=== PATIENT | female | born 1965 | race Caucasian/White ===

== ENCOUNTER 2017-10-15 13:10 | Inpatient (IN) | payer OTHER ==
[~2017-10-15] VITALS: Ht 154.9 cm; Wt 76.5 kg
[2017-10-15] VITALS (8 sets, daily range): BP systolic 106–119; BP diastolic 55–79; PULSE 64–168; RESP 16–26; TEMP 98.5–98.6; O2SAT 94–99
--- NOTE | 2017-10-15 13:28 | PD ---
HPI Chief Complaint: Cardiac Complaint Time Seen by Provider: 13:17 Travel History International Travel<30 days: No Contact w/Intl Traveler<30days: No Traveled to known affect area: No History of Present Illness HPI Patient was seen at a urgent care where the patient sought care for congestion, patient states that a she has been feeling more lethargic and more apparently whether it is short of breath or slightly winded with minimal exercise. Over the past 5 days patient states that she has been having cough and runny nose cough was productive of yellow to green sputum. And also she lost her voice onset yesterday modalities have been going on for the past 5 days. When she showed up to the urgent care they noted that she was tachycardic and did an EKG which showed him some atrial flutter and the patient was sent over here urgently. No PCP since patient is recently relocated from [place] No allergies to medications Denies any past medical history Only states history of foot surgery 6 years ago and 2 C-sections over 20 years ago. PFSH Social History Tobacco Use: No Allergies-Medications (Allergen,Severity, Reaction): Coded Allergies: No Known Allergies (Unverified , 10/15/17) Reported Meds & Prescriptions Reported Meds & Active Scripts Active Reported Vivelle-Dot Patch 84 HR (Estradiol) 0.05 Mg/24 Hr Patch 1 Patch T-DERMAL 2XWEEK Remove old patch and discard when new patch being placed. Change same days each week. Citalopram (Citalopram Hydrobromide) 40 Mg Tab 40 Mg PO DAILY Review of Systems General / Constitutional: No: Fever Eyes: No: Visual changes HENT: Positive: Rhinorrhea Cardiovascular: Positive: Palpitations Respiratory: Positive: Cough Gastrointestinal: No: Abdominal Pain Genitourinary: No: Dysuria Musculoskeletal: No: Pain Skin: No Rash Neurologic: No: Weakness Psychiatric: No: Depression Endocrine: No: Polydipsia Hematologic/Lymphatic: No: Easy Bruising Physical Exam Narrative GENERAL: SKIN: Warm and dry. HEAD: Atraumatic. Normocephalic. EYES: Pupils equal and round. No scleral icterus. No injection or drainage. ENT: No nasal bleeding or discharge. Mucous membranes pink and moist. NECK: Trachea midline. No JVD. CARDIOVASCULAR: Tachycardic rate and regular rhythm RESPIRATORY: No accessory muscle use. Clear to auscultation. Breath sounds equal bilaterally. GASTROINTESTINAL: Abdomen soft, non-tender, nondistended. MUSCULOSKELETAL: Extremities without clubbing, cyanosis, or edema. No obvious deformities. NEUROLOGICAL: Awake and alert. No obvious cranial nerve deficits. Motor grossly within normal limits. Five out of 5 muscle strength in the arms and legs. Normal speech. PSYCHIATRIC: Appropriate mood and affect; insight and judgment normal. Data Data Last Documented VS Vital Signs Date Time Temp Pulse Resp B/P (MAP) Pulse Ox O2 Delivery O2 Flow Rate FiO2 10/15/17 15:00 64 16 112/68 (83) 99 Nasal Cannula 2.00 10/15/17 13:42 98.6 Orders Orders Electrocardiogram (10/15/17 13:17) B-Type Natriuretic Peptide (10/15/17 13:17) Ckmb (Isoenzyme) Profile (10/15/17 13:17) Complete Blood Count With Diff (10/15/17 13:17) Comprehensive Metabolic Panel (10/15/17 13:17) Prothrombin Time / Inr (Pt) (10/15/17 13:17) Act Partial Throm Time (Ptt) (10/15/17 13:17) Troponin I (10/15/17 13:17) Lipase (10/15/17 13:17) Chest, Single Ap (10/15/17 13:17) Ecg Monitoring (10/15/17 13:17) Bilateral Bp Monitoring (10/15/17 13:17) Iv Access Insert/Monitor (10/15/17 13:17) Oximetry (10/15/17 13:17) Diltiazem Inj (Cardizem Inj) (10/15/17 13:30) Enoxaparin Inj (Lovenox Inj) (10/15/17 13:30) Sodium Chlor 0.9% 1000 Ml Inj (Ns 1000 M (10/15/17 14:21) Electrocardiogram (10/15/17 15:10) Thyroid Stimulating Hormone (10/15/17 15:10) Citalopram (Celexa) (10/16/17 09:00) Levothyroxine (Synthroid) (10/16/17 09:00) Pantoprazole (Protonix) (10/16/17 09:00) Comprehensive Metabolic Panel (10/16/17 06:00) Free Thyroxine (T4) (10/16/17 06:00) Hemoglobin (Hgb) A1c (10/16/17 06:00) Magnesium (Mg) (10/16/17 06:00) Phosphorus (Po4) (10/16/17 06:00) Complete Blood Count With Diff (10/16/17 06:00) Admit Order (Ed Use Only) (10/15/17 15:48) Labs Laboratory Tests Test 10/15/17 13:24 10/15/17 13:46 White Blood Count 11.9 TH/MM3 Red Blood Count 4.92 MIL/MM3 Hemoglobin 13.6 GM/DL Hematocrit 41.5 % Mean Corpuscular Volume 84.4 FL Mean Corpuscular Hemoglobin 27.7 PG Mean Corpuscular Hemoglobin Concent 32.8 % Red Cell Distribution Width 12.5 % Platelet Count 387 TH/MM3 Mean Platelet Volume 8.4 FL Neutrophils (%) (Auto) 72.1 % Lymphocytes (%) (Auto) 17.2 % Monocytes (%) (Auto) 4.7 % Eosinophils (%) (Auto) 2.0 % Basophils (%) (Auto) 4.0 % Neutrophils # (Auto) 8.6 TH/MM3 Lymphocytes # (Auto) 2.1 TH/MM3 Monocytes # (Auto) 0.6 TH/MM3 Eosinophils # (Auto) 0.2 TH/MM3 Basophils # (Auto) 0.5 TH/MM3 CBC Comment DIFF FINAL Differential Comment Prothrombin Time 10.0 SEC Prothromb Time International Ratio 1.0 RATIO Activated Partial Thromboplast Time 26.1 SEC Blood Urea Nitrogen 8 MG/DL Creatinine 0.62 MG/DL Random Glucose 122 MG/DL Total Protein 8.0 GM/DL Albumin 3.8 GM/DL Calcium Level 8.8 MG/DL Alkaline Phosphatase 88 U/L Aspartate Amino Transf (AST/SGOT) 12 U/L Alanine Aminotransferase (ALT/SGPT) 20 U/L Total Bilirubin 0.5 MG/DL Sodium Level 139 MEQ/L Potassium Level 3.7 MEQ/L Chloride Level 105 MEQ/L Carbon Dioxide Level 24.0 MEQ/L Anion Gap 10 MEQ/L Estimat Glomerular Filtration Rate 100 ML/MIN Total Creatine Kinase 27 U/L Troponin I LESS THAN 0.02 NG/ML B-Type Natriuretic Peptide 25 PG/ML Lipase 111 U/L Thyroid Stimulating Hormone 3rd Gen LESS THAN 0.005 uIU/ML MDM Medical Decision Making Medical Screen Exam Complete: Yes Emergency Medical Condition: Yes Medical Record Reviewed: Yes Interpretation(s) Pulse ox shows excellent PLETH wave, 98% pulse ox on room air which is interpreted as normal EKG shows atrial flutter type pattern at a rate of approximately [address] elevation noted however there are some ST depressions over V4 through V6. Repeat EKG shows normal sinus rhythm, 64 bpm at 1552. Also shows normal intervals, no STEMI pattern. No current evidence of atrial flutter or atrial fibrillation at this present time. Only minimal evidence of benign early repolarization. Differential Diagnosis New-onset atrial fibrillation versus atrial flutter versus SVT versus hyperthyroidism versus anemia versus pneumonia Narrative Course CBC shows a mild leukocytosis but without any major neutrophilia therefore this is believed to be a reactive leukocytosis. No anemia and normal platelet count without any left shift. Coagulation profile is within normal limits Chemistry profile shows negative troponin, normal beta natruretic peptide, normal lipase, normal liver function tests, normal kidney function tests, and normal electrolytes. TSH level is pending Chest x-ray is read by the radiologist as no acute cardiopulmonary abnormality identified Critical Care Narrative CRITICAL CARE NOTE: With evaluation of the patient, labs, EKG, receipt of radiologic studies, administration of medications, reevaluation the patient and discussion of the patient with the admitting physicians, the total critical care time was [60] minutes. Time to perform other separately billable procedures was not included in the critical care time. Diagnosis Primary Impression: New onset atrial flutter\SVT Additional Impression: URI (upper respiratory infection) Qualified Codes: J06.9 - Acute upper respiratory infection, unspecified Admitting Information Admitting Physician Requests: Observation Scripts Omeprazole (Omeprazole) 40 Mg Cap 40 MG PO DAILY for acid reflux, #30 CAP 0 Refills Prov: Cameron Lester MD 10/16/[address] (Aspirin EC) 81 Mg Tabdr 81 MG PO DAILY for afib, #30 TAB 0 Refills Prov: Cameron Lester MD 10/16/17 Metoprolol Tartrate (Metoprolol Tartrate) 25 Mg Tab 12.5 MG PO DIRECTED for afib, #30 TAB 0 Refills half tab by mouth twice daily Prov: Cameron Lester MD 10/16/17 Levothyroxine (Levothyroxine) 75 Mcg Tab 75 MCG PO DAILY for Thyroid, #30 TAB 0 Refills Prov: Cameron Lester MD 10/16/17 Ron Neri MD Oct 15, 2017 13:28
[2017-10-15] MEDS ORDERED: ENOXAPARIN SODIUM 80 MG/0.8 ML SYRINGE SQ ONE (13:30)
[2017-10-15] MEDS ORDERED: DILTIAZEM HCL 25 MG/5 ML VIAL IV PUSH ONE ×2 (13:30→16:00)
[2017-10-15 13:35] LABS: AUTOMATED NEUTROPHIL # 8.6 TH/MM3 (1.8-7.7); BASOPHIL # 0.5 TH/MM3 (0-0.2); EOSINOPHIL # 0.2 TH/MM3 (0-0.4); HEMATOCRIT 41.5 % (35.0-46.0); HEMOGLOBIN 13.6 GM/DL (11.6-15.3); LYMPH % 17.2 % (9.0-44.0); LYMPHOCYTE # 2.1 TH/MM3 (1.0-4.8); MEAN CELL VOLUME 84.4 FL (80.0-100.0); MEAN CORPUSCULAR HEMOGLOBIN 27.7 PG (27.0-34.0); MEAN CORPUSCULAR HGB CONC 32.8 % (32.0-36.0); MEAN PLATELET VOLUME 8.4 FL (7.0-11.0); MONO % 4.7 % (0.0-8.0); MONOCYTE # 0.6 TH/MM3 (0-0.9); NEUT % 72.1 % (16.0-70.0); PLATELET COUNT 387 TH/MM3 (150-450); RED BLOOD COUNT 4.92 MIL/MM3 (4.00-5.30); RED CELL DISTRIBUTION WIDTH 12.5 % (11.6-17.2); WHITE BLOOD COUNT 11.9 TH/MM3 (4.0-11.0)
[2017-10-15 13:49] LABS: CHLORIDE 105 MEQ/L (98-107); SODIUM (NA) 139 MEQ/L (136-145)
[2017-10-15 13:54] LABS: CALCIUM 8.8 MG/DL (8.5-10.1)
[2017-10-15 13:55] LABS: ALBUMIN 3.8 GM/DL (3.4-5.0); BLOOD UREA NITROGEN 8 MG/DL (7-18); GLUCOSE,RANDOM 122 MG/DL (74-106)
[2017-10-15 13:57] LABS: ALT (GPT) 20 U/L (10-53)
[2017-10-15 13:58] LABS: AST (GOT) 12 U/L (15-37); CREATININE 0.62 MG/DL (0.50-1.00); GLOMERULAR FILTRATION RATE 100 ML/MIN (>89)
[2017-10-15 13:59] LABS: TOTAL BILIRUBIN ADULT 0.5 MG/DL (0.2-1.0)
[2017-10-15 14:00] LABS: ALKALINE PHOSPHATASE 88 U/L (45-117)
[2017-10-15] MEDS ORDERED: LEVO150T7 PO (14:01)
[2017-10-15] MEDS ORDERED: OMEP20TA93 PO (14:01)
[2017-10-15] MEDS ORDERED: CITA40TA4 PO (14:01)
[2017-10-15] MEDS ORDERED: VIVE0.05 T-DERMAL (14:01)
[2017-10-15 14:02] LABS: TROPONIN I LESS THAN 0.02 NG/ML (0.02-0.05)
--- NOTE | 2017-10-15 14:03 | RADRPT ---
EXAM DATE/TIME: 10/15/2017 13:33 [facility] COMPARISON: No previous studies available for comparison. INDICATIONS : Cough and palpatations MEDICAL HISTORY : None. SURGICAL HISTORY : None. ENCOUNTER: Initial ACUITY: 4 - 6 days PAIN SCORE: 3/10 LOCATION: Bilateral chest FINDINGS: Portable AP view of the chest demonstrates a normal-sized cardiac silhouette. No effusion, consolidat ion, or pneumothorax is visualized. The bones and soft tissues demonstrate no acute abnormality. CONCLUSION: No acute cardiopulmonary abnormality is identified. Sanket Kam MD on October 15, 2017 at 14:01 Board Certified Radiologist. This report was verified electronically.
[2017-10-15] MEDS ORDERED: SODIUM CHLOR 0.9% 1000 ML INJ 1,000 ML IV SCH (14:21)
[2017-10-15] MEDS ORDERED: DILTIAZEM INJ 125 MG in SODIUM CHLORIDE 0.9% INJ 100 ML IV PRN (16:00)
[2017-10-15] MEDS ORDERED: RESP: ALBUTEROL 2.5 MG/IPRATROPIUM 0.5 MG NEB (PRN) NEB (16:00)
[2017-10-15] MEDS ORDERED: ONDANSETRON HCL 4 MG/2 ML VIAL IVP PRN (16:00)
[2017-10-15] MEDS ORDERED: ACETAMINOPHEN/HYDROcodone 325 MG/10 MG TAB PO PRN (16:00)
[2017-10-15] MEDS ORDERED: oxyCODONE/ACETAMINOPHEN 5 MG/325 MG TAB PO PRN (16:00)
[2017-10-15] MEDS ORDERED: METOCLOPRAMIDE HCL 10 MG/2 ML VIAL IV PUSH PRN (16:00)
[2017-10-15] MEDS ORDERED: ACETAMINOPHEN 325 MG TAB PO PRN (16:00)
[2017-10-15] MEDS ORDERED: SODIUM CHLORIDE 0.9% FLUSH 10 ML FLUSH IV FLUSH PRN ×2 (16:00)
[2017-10-15] MEDS ORDERED: MORPHINE SULFATE 2 MG/ML INJ IV PUSH PRN ×2 (16:00)
[2017-10-15] MEDS ORDERED: BISACODYL 10 MG SUPP RECTAL PRN (16:00)
[2017-10-15] MEDS ORDERED: SENNOSIDES 8.6 MG TAB PO PRN (16:00)
[2017-10-15] MEDS ORDERED: LACTULOSE SYRUP 20 GM/30 ML CUP PO PRN (16:00)
[2017-10-15] MEDS ORDERED: MAGNESIUM HYDROXIDE SUSP 30 ML CUP PO PRN (16:00)
[2017-10-15] MEDS ORDERED: NALOXONE HCL 0.4 MG/ML AMP IV PUSH PRN (16:00)
[2017-10-15 16:50] LABS: TROPONIN I LESS THAN 0.02 NG/ML (0.02-0.05)
[2017-10-15] MEDS ORDERED: AZITHROMYCIN INJ 500 MG in SODIUM CHLOR 0.9% 250 ML INJ 250 ML IV SCH (17:00)
[2017-10-15] MEDS ORDERED: diphenhydrAMINE HCL 50 MG/ML VIAL IV PUSH PRN (18:15)
--- NOTE | 2017-10-15 18:19 | HHI.HP ---
[facility] No Primary Care Physician Admission Diagnosis AFLUTTER WITH CONTROLLED VENTR RATE, THYROID DISORDER Diagnoses: (1) Atrial fibrillation Diagnosis: Principal (2) Atrial flutter Diagnosis: Principal (3) Hypothyroid Diagnosis: Secondary (4) Hyperthyroidism Diagnosis: Principal (5) GERD (gastroesophageal reflux disease) Diagnosis: Secondary (6) Depression Diagnosis: Secondary (7) URI (upper respiratory infection) Diagnosis: Secondary Travel History International Travel<30 Days: No Contact w/Intl Traveler <30 Da: No Traveled to Known Affected Are: No History of Present Illness Patient is a 52-year-old female, Who was seen at a urgent care where the patient seeking care for congestion, patient states that a she has been feeling more lethargic and more apathetic whether it is short of breath or slightly winded with minimal exercise. Patient states she has had issues with this in the past before Over the past 5 days patient states that she has been having cough and runny nose cough was productive of yellow to green sputum. And also she lost her voice onset yesterday these issues have been going on have been going on for the past 5 days. When the patient presented to the urgent care they noted that she was tachycardic and did an EKG which showed that she had some atrial flutter and the patient was sent over here urgently for evaluation of her atrial fibrillation/atrial flutter. Patient does not have a current PCP yet since patient is recently relocated from [place] No allergies to medications Denies any past medical history other than depression, hypothyroidism, and GERD and some possible issues with palpitations in the past Only states history of foot surgery 6 years ago and 2 C-sections over 20 years ago. Review of Systems Constitutional: COMPLAINS OF: Fever, Chills, DENIES: Diaphoretic episodes, Fatigue, Weight gain, Weight loss, Dizziness, Change in appetite, Night Sweats Endocrine: DENIES: Abnorml menstrual pattern, Heat/cold intolerance, Polydipsia , Polyuria, Polyphagia Eyes: DENIES: Blurred vision, Diplopia, Eye inflammation, Eye pain, Vision loss , Photosensitivity, Double Vision Ears, nose, mouth, throat: COMPLAINS OF: Nasal discharge, Hoarseness, DENIES: Tinnitus, Hearing loss, Vertigo, Oral lesions, Throat pain, Ear Pain, Running Nose, Epistaxis, Sinus Pain, Toothache, Odynophagia Respiratory: COMPLAINS OF: Cough, Sputum production, Shortness of breath, DENIES: Apneas, Snoring, Wheezing, Hemoptysis Cardiovascular: DENIES: Chest pain, Palpitations, Syncope, Dyspnea on Exertion , PND, Lower Extremity Edema, Orthopnea, Claudication Gastrointestinal: DENIES: Abdominal pain, Black stools, Bloody stools, Constipation, Diarrhea, Nausea, Vomiting, Difficulty Swallowing Genitourinary: DENIES: Abnormal vaginal bleeding, Dysmenorrhea, Dyspareunia, Sexual dysfunction, Urinary frequency Musculoskeletal: DENIES: Joint pain, Muscle aches, Stiffness, Joint Swelling, Back pain Integumentary: DENIES: Abnormal pigmentation, Pruritus, Rash, Breast masses, Breast skin changes Hematologic/lymphatic: DENIES: Bruising, Lymphadenopathy Immunologic/allergic: DENIES: Eczema, Urticaria Neurologic: DENIES: Abnormal gait, Headache, Localized weakness, Paresthesias, Seizures, Speech Problems, Tremor, Poor Balance Psychiatric: COMPLAINS OF: Depression, DENIES: Anxiety, Confusion, Mood changes , Hallucinations, Agitation, Suicidal Ideation, Homicidal Ideation Past Family Social History Past Medical History Depression Hypothyroidism GERD Past Surgical History section Foot surgery Reported Medications Reported Meds & Active Scripts Active Reported Vivelle-Dot Patch 84 HR (Estradiol) 0.05 Mg/24 Hr Patch 1 Patch T-DERMAL 2XWEEK Remove old patch and discard when new patch being placed. Change same days each week. Citalopram (Citalopram Hydrobromide) 40 Mg Tab 40 Mg PO DAILY Levothyroxine (Levothyroxine Sodium) 150 Mcg Tab 150 Mcg PO DAILY Omeprazole 20 Mg Tab 20 Mg PO DAILY Allergies: Coded Allergies: No Known Allergies (Unverified , 10/15/17) Active Ordered Medications Current Medications Diltiazem HCl (Cardizem Inj) 20 mg BOLUS ONCE IV PUSH Last administered on at 13:36; Start 10/15/17 at 13:30; Stop 10/15/17 at 13:31; Status DC Enoxaparin Sodium (Lovenox Inj) 70 mg ONCE ONCE SQ Last administered on at 13:37; Start 10/15/17 at 13:30; Stop 10/15/17 at 13:31; Status DC Sodium Chloride 1,000 ml @ 1,000 mls/hr Q1H IV Last administered on 10/15/17at 14:25; Start 10/15/17 at 14:21; Stop 10/15/17 at 15:20; Status DC Citalopram Hydrobromide (CeleXA) 40 mg DAILY PO ; Start 10/16/17 at 09:00 Levothyroxine Sodium (Synthroid) 150 mcg DAILY PO ; Start 10/16/17 at 09:00; Stop 10/16/17 at 09:00; Status DC Pantoprazole Sodium (Protonix) 20 mg DAILY PO ; Start 10/16/17 at 09:00 Diltiazem HCl (Cardizem Inj) 20 mg ONCE ONCE IV PUSH ; Start 10/15/17 at 16:00 ; Stop 10/15/17 at 16:01; Status DC Diltiazem HCl 125 mg/Sodium Chloride 125 ml @ 5 mls/hr TITRATE PRN IV Tachycardia; Start 10/15/17 at 16:00 Sodium Chloride (NS Flush) 2 ml UNSCH PRN IV FLUSH FLUSH AFTER USING IV ACCESS ; Start 10/15/17 at 16:00 Sodium Chloride (NS Flush) 2 ml BID IV FLUSH ; Start 10/15/17 at 21:00 Metoprolol Tartrate (Lopressor) 25 mg BID PO ; Start 10/15/17 at 21:00 Enoxaparin Sodium (Lovenox Inj) 70 mg Q12HR SQ ; Start 10/15/17 at 21:00 Azithromycin 500 mg/Sodium Chloride 250 ml @ 250 mls/hr Q24H IV Last administered on 10/15/17at 17:01; Start 10/15/17 at 17:00 Guaifenesin (Mucinex Er) 600 mg BID PO ; Start 10/15/17 at 21:00 Albuterol/ Ipratropium (Duoneb Neb) 1 ampule Q4HR NEB PRN NEB SHORTNESS OF BREATH; Start 10/15/17 at 16:00 Sodium Chloride (NS Flush) 2 ml UNSCH PRN IV FLUSH FLUSH AFTER USING IV ACCESS ; Start 10/15/17 at 16:00; Status UNV Sodium Chloride (NS Flush) 2 ml BID IV FLUSH ; Start 10/15/17 at 21:00; Status UNV Acetaminophen (Tylenol) 650 mg Q4H PRN PO TEMP > 100.4; Start 10/15/17 at 16:00 Ondansetron HCl (Zofran Inj) 4 mg Q6H PRN IVP NAUSEA OR VOMITING; Start at 16:00 Metoclopramide HCl (Reglan Inj) 5 mg Q6H PRN IV PUSH NAUSEA OR VOMITING; Start 10/15/17 at 16:00 Acetaminophen (Tylenol) 650 mg Q6H PRN PO PAIN SCALE 1 TO 2; Start 10/15/17 at 16:00 Acetaminophen/ Hydrocodone Bitart ([place] 10-325 Mg) 1 tab Q4H PRN PO PAIN SCALE 6 TO 10; Start 10/15/17 at 16:00 Oxycodone/ Acetaminophen (Percocet 5-325 Mg) 1 tab Q6H PRN PO PAIN SCALE 3 TO 5; Start 10/15/17 at 16:00 Morphine Sulfate (Morphine Inj) 2 mg Q3H PRN IV PUSH Pain 3-5; if unable to take PO; Start 10/15/17 at 16:00 Morphine Sulfate (Morphine Inj) 4 mg Q3H PRN IV PUSH Pain 6-10;if unable to take PO; Start 10/15/17 at 16:00 Naloxone HCl (Narcan Inj) 0.4 mg UNSCH PRN IV PUSH SEE LABEL COMMENTS; Start at 16:00 Senna/Docusate Sodium (Abbie-Colace) 1 tab BID PO ; Start 10/15/17 at 21:00 Magnesium Hydroxide (Milk Of Magnesia Liq) 30 ml Q12H PRN PO Mild constipation ; Start 10/15/17 at 16:00 Sennosides (Senokot) 17.2 mg Q12H PRN PO Moderate constipation; Start 10/15/17 at 16:00 Bisacodyl (Dulcolax Supp) 10 mg DAILY PRN RECTAL SEVERE CONSITIPATION; Start at 16:00 Lactulose (Lactulose Liq) 30 ml DAILY PRN PO SEVERE CONSITIPATION; Start at 16:00 Family History Mother at age 43 with pancreatic cancer Father age 85 had hypertension coronary artery disease and diabetes Social History Denies any tobacco alcohol or illicits Physical Exam Vital Signs Vital Signs Date Time Temp Pulse Resp B/P (MAP) Pulse Ox O2 Delivery O2 Flow Rate FiO2 10/15/17 17:32 72 16 106/68 (81) 97 Room Air 114/78 (90) 10/15/17 15:00 64 16 112/68 (83) 99 Nasal Cannula 2.00 10/15/17 13:42 98.6 168 16 116/79 (91) 96 10/15/17 13:40 96 Room Air 10/15/17 13:39 16 96 Room Air Physical Exam GENERAL: This is a well-nourished, well-developed patient, in no apparent distress. SKIN: No rashes, ecchymoses or lesions. Cool and dry. HEAD: Atraumatic. Normocephalic. No temporal or scalp tenderness. EYES: Pupils equal round and reactive. Extraocular motions intact. No scleral icterus. No injection or drainage. ENT: Nose without bleeding, purulent drainage or septal hematoma. Throat without erythema, tonsillar hypertrophy or exudate. Uvula midline. Airway patent. NECK: Trachea midline. No JVD or lymphadenopathy. Supple, nontender, no meningeal signs. CARDIOVASCULAR: IRRegular rate and rhythm without murmurs, gallops, or rubs. S1 and S2 no S3 or S4 RESPIRATORY: Clear to auscultation. Breath sounds equal bilaterally. No wheezes , rales, or rhonchi. GASTROINTESTINAL: Abdomen soft, non-tender, nondistended. No hepato-splenomegaly , or palpable masses. No guarding. MUSCULOSKELETAL: Extremities without clubbing, cyanosis, or edema. No joint tenderness, effusion, or edema noted. No calf tenderness. Negative Homans sign bilaterally. NEUROLOGICAL: Awake and alert. Cranial nerves II through XII intact. Motor and sensory grossly within normal limits. Five out of 5 muscle strength in all muscle groups. Normal speech. Insight and judgment is good mood and behaviors appropriate Laboratory Laboratory Tests Test 10/15/17 13:24 10/15/17 13:46 10/15/17 16:15 White Blood Count 11.9 Red Blood Count 4.92 Hemoglobin 13.6 Hematocrit 41.5 Mean Corpuscular Volume 84.4 Mean Corpuscular Hemoglobin 27.7 Mean Corpuscular Hemoglobin Concent 32.8 Red Cell Distribution Width 12.5 Platelet Count 387 Mean Platelet Volume 8.4 Neutrophils (%) (Auto) 72.1 Lymphocytes (%) (Auto) 17.2 Monocytes (%) (Auto) 4.7 Eosinophils (%) (Auto) 2.0 Basophils (%) (Auto) 4.0 Neutrophils # (Auto) 8.6 Lymphocytes # (Auto) 2.1 Monocytes # (Auto) 0.6 Eosinophils # (Auto) 0.2 Basophils # (Auto) 0.5 CBC Comment DIFF FINAL Differential Comment Prothrombin Time 10.0 Prothromb Time International Ratio 1.0 Activated Partial Thromboplast Time 26.1 Blood Urea Nitrogen 8 Creatinine 0.62 Random Glucose 122 Total Protein 8.0 Albumin 3.8 Calcium Level 8.8 Alkaline Phosphatase 88 Aspartate Amino Transf (AST/SGOT) 12 Alanine Aminotransferase (ALT/SGPT) 20 Total Bilirubin 0.5 Sodium Level 139 Potassium Level 3.7 Chloride Level 105 Carbon Dioxide Level 24.0 Anion Gap 10 Estimat Glomerular Filtration Rate 100 Total Creatine Kinase 27 21 Troponin I LESS THAN 0.02 LESS THAN 0.02 B-Type Natriuretic Peptide 25 Lipase 111 Thyroid Stimulating Hormone 3rd Gen LESS THAN 0.005 Magnesium Level 2.0 Result Diagram: 10/15/17 1324 10/15/17 1324 Caprini VTE Risk Assessment Caprini VTE Risk Assessment: Mod/High Risk (score >= 2) Caprini Risk Assessment Model Point Value = 1 Point Value = 2 Point Value = 3 Point Value = 5 Age 41-60 Minor surgery BMI > 25 kg/m2 Swollen legs Varicose veins or History of unexplained or recurrent spontaneous Oral contraceptives or hormone replacement Sepsis (< 1 month) Serious lung disease, including pneumonia (< 1 month) Abnormal pulmonary function Acute myocardial infarction Congestive heart failure (< 1 month) History of inflammatory bowel disease Medical patient at bed rest Age 61-74 Arthroscopic surgery Major open surgery (> 45 min) Laparoscopic surgery (> 45 min) Malignancy Confined to bed (> 72 hours) Immobilizing plaster cast Central venous access Age >= 75 History of VTE Family history of VTE Factor V Leiden Prothrombin [id number] Lupus anticoagulant Anticardiolipin antibodies Elevated serum homocysteine Heparin-induced thrombocytopenia Other congenital or acquired thrombophilia Stroke (< 1 month) Elective arthroplasty Hip, pelvis, or leg fracture Acute spinal cord injury (< 1 month) Prophylaxis Regimen Total Risk Factor Score Risk Level Prophylaxis Regimen 0-1 Low Early ambulation 2 Moderate Order ONE of the following: *Sequential Compression Device (SCD) *Heparin 5000 units SQ BID 3-4 Higher Order ONE of the following medications: *Heparin 5000 units SQ TID *Enoxaparin/Lovenox 40 mg SQ daily (WT < 150 kg, CrCl > 30 mL/min) *Enoxaparin/Lovenox 30 mg SQ daily (WT < 150 kg, CrCl > 10-29 mL/min) *Enoxaparin/Lovenox 30 mg SQ BID (WT < 150 kg, CrCl > 30 mL/min) AND/OR *Sequential Compression Device (SCD) 5 or more Highest Order ONE of the following medications: *Heparin 5000 units SQ TID (Preferred with Epidurals) *Enoxaparin/Lovenox 40 mg SQ daily (WT < 150 kg, CrCl > 30 mL/min) *Enoxaparin/Lovenox 30 mg SQ daily (WT < 150 kg, CrCl > 10-29 mL/min) *Enoxaparin/Lovenox 30 mg SQ BID (WT < 150 kg, CrCl > 30 mL/min) AND *Sequential Compression Device (SCD) Assessment and Plan Problem List: (1) Atrial fibrillation ICD Code: I48.91 - Unspecified atrial fibrillation (2) Atrial flutter ICD Code: I48.92 - Unspecified atrial flutter (3) Hyperthyroidism ICD Code: E05.90 - Thyrotoxicosis, unspecified without thyrotoxic crisis or storm (4) Depression ICD Code: F32.9 - Major depressive disorder, single episode, unspecified (5) Hypothyroid ICD Code: E03.9 - Hypothyroidism, unspecified (6) URI (upper respiratory infection) ICD Code: J06.9 - Acute upper respiratory infection, unspecified (7) GERD (gastroesophageal reflux disease) ICD Code: K21.9 - Gastro-esophageal reflux disease without esophagitis Assessment and Plan Atrial fibrillation/atrial flutter suspect secondary to possibly hyperthyroidism versus Sudafed medications for her upper respiratory infection Consult cardiology Trend troponins Echocardiogram Lovenox Cardizem drip as needed has received Cardizem pushes Metoprolol Upper respiratory infection continue on Zithromax and Mucinex and incentive spirometry and then treatment Depression continue on home medications GERD continue on PPI Hyperthyroid now we'll hold off on any thyroid replacement and get free T4 History of section foot surgery Code Status FULL CODE Discussed Condition With ER PHYSICIAN AND PATIENT AND RN AND CARDIOLOGY Physician Certification 2 Midnight Certification Type: Admission for Inpatient Services Order for Inpatient Services The services are ordered in accordance with Medicare regulations or non- Medicare payer requirements, as applicable. In the case of services not specified as inpatient-only, they are appropriately provided as inpatient services in accordance with the 2-midnight benchmark. Estimated LOS (days): 2 days is the estimated time the patient will need to remain in the hospital, assuming treatment plan goals are met and no additional complications. Post-Hospital Plan: Home Eduardo Soto DO Oct 15, 2017 18:19
--- NOTE | 2017-10-15 20:10 | RADRPT ---
EXAM DATE/TIME: 10/15/2017 18:38 [facility] COMPARISON: No previous studies available for comparison. INDICATIONS : Cough. MEDICAL HISTORY : None. SURGICAL HISTORY : None. ENCOUNTER: Subsequent ACUITY: 4 - 6 days PAIN SCORE: 0/10 LOCATION: Bilateral chest FINDINGS: PA and lateral views of the chest demonstrate the lungs to be symmetrically aerated without evidence of mass, infiltrate or effusion. The cardiomediastinal contours are unremarkable. Osseous structure s are intact. CONCLUSION: No acute disease. Nicolas Mg MD on October 15, 2017 at 20:08 Board Certified Radiologist. This report was verified electronically.
[2017-10-15] MEDS: SODIUM CHLORIDE 0.9% FLUSH 10 ML FLUSH IV FLUSH SCH (20:46)
[2017-10-15] MEDS: DOCUSATE SODIUM 50 MG/SENNA 8.6 MG TAB PO SCH (20:46)
[2017-10-15] MEDS: ENOXAPARIN SODIUM 80 MG/0.8 ML SYRINGE SQ SCH (20:46)
[2017-10-15] MEDS: guaiFENesin E.R. 600 MG TAB PO SCH (20:46)
[2017-10-15] MEDS: METOPROLOL TARTRATE 25 MG TAB PO SCH (20:46)
[2017-10-15] MEDS: ACETAMINOPHEN 325 MG TAB PO PRN (20:50)
[2017-10-15] MEDS ORDERED: SODIUM CHLORIDE 0.9% FLUSH 10 ML FLUSH IV FLUSH SCH (21:00)
[2017-10-15 22:46] LABS: TROPONIN I LESS THAN 0.02 NG/ML (0.02-0.05)
[2017-10-16] VITALS (8 sets, daily range): BP systolic 87–111; BP diastolic 47–57; PULSE 52–62; RESP 14–28; TEMP 97.8–98.5; O2SAT 94–98
[2017-10-16 05:06] LABS: AUTOMATED NEUTROPHIL # 4.5 TH/MM3 (1.8-7.7); BASOPHIL # 0.1 TH/MM3 (0-0.2); BASOPHIL % 1.4 % (0.0-2.0); EOSINOPHIL # 0.3 TH/MM3 (0-0.4); EOSINOPHIL % 3.5 % (0.0-4.0); HEMATOCRIT 36.7 % (35.0-46.0); HEMOGLOBIN 12.3 GM/DL (11.6-15.3); LYMPH % 30.9 % (9.0-44.0); LYMPHOCYTE # 2.4 TH/MM3 (1.0-4.8); MEAN CELL VOLUME 85.8 FL (80.0-100.0); MEAN CORPUSCULAR HEMOGLOBIN 28.8 PG (27.0-34.0); MEAN CORPUSCULAR HGB CONC 33.6 % (32.0-36.0); MEAN PLATELET VOLUME 8.6 FL (7.0-11.0); MONO % 5.6 % (0.0-8.0); MONOCYTE # 0.4 TH/MM3 (0-0.9); NEUT % 58.6 % (16.0-70.0); PLATELET COUNT 347 TH/MM3 (150-450); RED BLOOD COUNT 4.27 MIL/MM3 (4.00-5.30); RED CELL DISTRIBUTION WIDTH 12.5 % (11.6-17.2); WHITE BLOOD COUNT 7.7 TH/MM3 (4.0-11.0)
[2017-10-16 05:07] LABS: CHLORIDE 107 MEQ/L (98-107); SODIUM (NA) 140 MEQ/L (136-145)
[2017-10-16 05:10] LABS: ALBUMIN 3.2 GM/DL (3.4-5.0); CALCIUM 8.2 MG/DL (8.5-10.1)
[2017-10-16 05:11] LABS: BICARBONATE 26.5 MEQ/L (21.0-32.0); BLOOD UREA NITROGEN 9 MG/DL (7-18); GLUCOSE,RANDOM 138 MG/DL (74-106); MAGNESIUM 2.2 MG/DL (1.5-2.5)
[2017-10-16 05:13] LABS: ALT (GPT) 15 U/L (10-53); AST (GOT) 8 U/L (15-37); CREATININE 0.54 MG/DL (0.50-1.00); GLOMERULAR FILTRATION RATE 118 ML/MIN (>89)
[2017-10-16 05:14] LABS: PHOSPHORUS 3.4 MG/DL (2.5-4.9)
[2017-10-16 05:15] LABS: TOTAL BILIRUBIN ADULT 0.4 MG/DL (0.2-1.0); TOTAL PROTEIN 6.8 GM/DL (6.4-8.2)
[2017-10-16 05:16] LABS: ALKALINE PHOSPHATASE 71 U/L (45-117)
[2017-10-16] MEDS: ENOXAPARIN SODIUM 80 MG/0.8 ML SYRINGE SQ SCH (08:30)
[2017-10-16] MEDS: guaiFENesin E.R. 600 MG TAB PO SCH (08:30)
[2017-10-16] MEDS: SODIUM CHLORIDE 0.9% FLUSH 10 ML FLUSH IV FLUSH SCH (08:30)
[2017-10-16] MEDS: METOPROLOL TARTRATE 25 MG TAB PO SCH (08:31)
[2017-10-16] MEDS: DOCUSATE SODIUM 50 MG/SENNA 8.6 MG TAB PO SCH (08:31)
[2017-10-16] MEDS: ACETAMINOPHEN 325 MG TAB PO PRN (08:34)
[2017-10-16] MEDS ORDERED: PANTOPRAZOLE SOD 20 MG DELAYED RELEASE TAB PO SCH (09:00)
[2017-10-16] MEDS ORDERED: LEVOTHYROXINE SODIUM 150 MCG TAB PO SCH (09:00)
[2017-10-16] MEDS ORDERED: CITALOPRAM HYDROBROMIDE 40 MG TAB PO SCH (09:00)
[2017-10-16] MEDS ORDERED: INFLUENZA VIRUS VACCINE (QUADRIVALENT) 0.5 ML SYR IM ONE (10:00)
[2017-10-16] MEDS ORDERED: PNEUMOCOCCAL POLYVALENT INJ 25 MCG/0.5 ML SYR IM ONE (10:00)
[2017-10-16 10:02] LABS: FREE T4 1.28 NG/DL (0.76-1.46)
--- NOTE | 2017-10-16 10:33 | MB ---
cc: Krystal Mendoza MD DATE OF CONSULT: REASON FOR CONSULTATION: New onset atrial fibrillation. HISTORY OF PRESENT ILLNESS: The patient is a 52-year-old female who presented to an urgent care clinic with cold and flu symptoms, with yellow sputum. She was found to have atrial fibrillation with rapid ventricular rate and referred to the emergency room. The patient reports that she has had intermittent palpitations in the past, but was never diagnosed with the atrial fibrillation. She is currently asymptomatic with regard to that, but did have some throat discomfort. She does continue to report congestion from her cold, but denies any cardiac symptoms at this time. ALLERGIES: NO KNOWN DRUG ALLERGIES. OUTPATIENT MEDICATIONS: Include citalopram, levothyroxine, omeprazole, Vivelle-Dot Patch. PAST MEDICAL HISTORY: Significant for hypothyroidism, GERD. REVIEW OF SYSTEMS: Except as mentioned in the HPI, all 12 systems are negative. SOCIAL HISTORY: The patient is . FAMILY HISTORY: Noncontributory. PHYSICAL EXAMINATION: VITAL SIGNS: Heart rate 64, respiratory rate 16, blood pressure 112/68. GENERAL: She is an overweight female who is in no apparent distress. NECK: Her neck is free from JVD. PULMONARY: Her lungs are bilaterally clear to auscultation. CARDIOVASCULAR: She has a normal S1 and S2. I did not appreciate any murmurs, rubs or gallops. ABDOMEN: Soft. EXTREMITIES: Free from edema. LABORATORY VALUES: Show a TSH of less than 0.005. Her total creatinine is 21 and the troponin is less than 0.02. ECHOCARDIOGRAM: On arrival, does show atrial fibrillation with rapid ventricular rate. TELEMETRY: Currently shows normal sinus rhythm of 65. IMPRESSION: NEW ONSET ATRIAL FIBRILLATION: Her CHADS-VASc score is 1 for a female. This is essentially lone atrial fibrillation and likely related to her thyroid. I would use aspirin for anticoagulation and would add low dose metoprolol if she is able to tolerate it, at least until her thyroid normalizes, as her resting heart rate is in the 60s. THYROID: This will be per the primary team. COLD: This is being treated by the primary team with antibiotics. DISPOSITION: It is reasonable for the patient to be discharged in the a.m., with outpatient followup provided she remains in sinus rhythm. MD DARCY Rock/MELE , 05:08 PM , 11:39 PM
[2017-10-16] MEDS ORDERED: LEVO75TA3 PO (11:55)
[2017-10-16] MEDS ORDERED: METO25TA3 PO (12:01)
[2017-10-16] MEDS ORDERED: ASPI81TA23 PO (12:01)
--- NOTE | 2017-10-16 12:02 | HHI.DCPOC ---
Discharge Care Plan Diagnosis: (1) Atrial flutter (2) Atrial fibrillation (3) Hypothyroid (4) URI (upper respiratory infection) Additional Problems Have your PCP titrate your synthroid dose in the clinic. Goals to Promote Your Health * To prevent worsening of your condition and complications * To maintain your health at the optimal level Directions to Meet Your Goals Take your medications as prescribed Follow your dietary instruction Follow activity as directed Keep your appointments as scheduled Take your immunizations and boosters as scheduled If your symptoms worsen call your PCP, if no PCP go to Urgent Care Center or Emergency Room Smoking is Dangerous to Your Health. Avoid second hand smoke Call the 24-hour hour crisis hotline for domestic abuse at Cameron Lester MD Oct 16, 2017 12:02
[2017-10-16] MEDS ORDERED: OMEP40CA2 PO (12:25)
--- NOTE | 2017-10-16 12:28 | HHI.PR ---
Subjective Remarks Nursing denies any deterioration since last night. Patient is also she feels better. Tolerating p.o. intake. Heart rate is in the 60s. It had some transient hypotension last night was likely due to metoprolol from yesterday. Objective Vital Signs Date Time Temp Pulse Resp B/P (MAP) Pulse Ox O2 Delivery O2 Flow Rate FiO2 10/16/17 12:00 58 10/16/17 12:00 58 28 91/52 (65) 10/16/17 08:00 52 10/16/17 08:00 97.8 62 14 111/57 (75) 94 10/16/17 07:46 98 21 10/16/17 04:01 98.5 56 17 87/48 (61) 96 10/16/17 04:00 60 10/16/17 00:00 56 10/16/17 00:00 98.1 56 17 99/47 (64) 95 10/15/17 20:42 98.6 66 26 106/55 (72) 10/15/17 20:00 68 10/15/17 19:40 98 21 10/15/17 17:32 72 16 106/68 (81) 97 Room Air 114/78 (90) 10/15/17 16:00 98.5 72 20 119/72 (88) 94 10/15/17 15:00 64 16 112/68 (83) 99 Nasal Cannula 2.00 10/15/17 13:42 98.6 168 16 116/79 (91) 96 10/15/17 13:40 96 Room Air 10/15/17 13:39 16 96 Room Air I/O 10/15/17 10/15/17 10/15/17 10/16/17 10/16/17 10/16/17 06:59 14:59 22:59 06:59 14:59 22:59 Intake Total 1250 ml Balance 1250 ml Intake IV Total 1250 ml # Voids 1 Result Diagram: 10/16/17 0435 10/16/17434 Objective Remarks Heart sounds are regular rate rhythm, no murmurs Lying up in bed, no acute distress, awake, alert, lungs are clear bilaterally, has a good audible voice today A/P Assessment and Plan A. fib with RVR now under stable control with metoprolol. We will discharge the patient with a lower dose of 12.5 mg twice a day to better balance her blood pressure. She was counseled to start a low-dose baby aspirin for her stroke risk and that we will also lower her Synthroid medication dose and have that fine-tuned as an outpatient given the possibility that she may be having an iatrogenic overactive thyroid possibly causing her A. fib. Patient has been maximal benefit from hospitalization and is clinically stable for discharge.. Cameron Lester MD Oct 16, 2017 12:28
[2017-10-16] MEDS ORDERED: SODIUM CHLOR 0.9% 1000 ML INJ 1,000 ML IV ONE (12:30)
[2017-10-16 15:46] LABS: HEMOGLOBIN A1C 6.2 % (4.3-6.0)
--- NOTE | 2017-10-16 22:20 | EKG ---
Date Performed: 10/15/2017 Time Performed: 21:57:19 PTAGE: 52 years EKG: ATRIAL FIBRILLATION ABNORMAL RHYTHM ECG PREVIOUS TRACING : 10/15/2017 15.52 Compared to prior tracing, SR NO LONGER PRESENT DOCTOR: Sarahi Shepherd Interpretating Date/Time 10/16/2017 22:19:10
--- NOTE | 2017-10-16 22:45 | EKG ---
Date Performed: 10/15/2017 Time Performed: 15:52:24 PTAGE: 52 years EKG: Sinus rhythm NORMAL ECG PREVIOUS TRACING : 10/15/2017 13.21 Compared to prior tracing, TACHYCARDIA NO LONGER PRESENT DOCTOR: Sarahi Shepherd Interpretating Date/Time 10/16/2017 22:43:44
--- NOTE | 2017-10-16 22:50 | EKG ---
Date Performed: 10/15/2017 Time Performed: 13:21:12 PTAGE: 52 years EKG: ATRIAL FLUTTER/TACHYCARDIA WITH RAPID VENTRICULAR RESPONSE NONSPECIFIC ST & T-WAVE ABNORMAL ITY ABNORMAL RHYTHM ECG NO PREVIOUS TRACING DOCTOR: Sarahi Shepherd Interpretating Date/Time 10/16/2017 22:48:19
== END 2017-10-16 14:30 | disposition home or self-care (01) | DRG 310 ==
LOC: PHED 13:10 → PHEDA 15:49 → OBSVTOIN 15:57 → PHICU 18:22
PROVIDERS: ADMIT Hospitalist; ATTEND Hospitalist
DX: I47.1 Supraventricular tachycardia (principal); I48.92 Unspecified atrial flutter; I48.91 Unspecified atrial fibrillation; J06.9 Acute upper respiratory infection, unspecified; D72.828 Other elevated white blood cell count; E03.9 Hypothyroidism, unspecified; K21.9 Gastro-esophageal reflux disease without esophagitis; T44.7X5A Adverse effect of beta-adrenoreceptor antagonists, initial encounter; R03.1 Nonspecific low blood-pressure reading; F32.9 Major depressive disorder, single episode, unspecified; Z23 Encounter for immunization
CPT/HCPCS: 71045; 71046; 80053; 82550; 83036; 83690; 83735; 83880; 84100; 84439; 84443; 84484; 85025; 85610; 85730; 90471; 90686; 90732; 93005; 94150; 96361; 96372; 96374; G0008; G0009; J0456; J1650; J7030; J7050; Q2038